=== PATIENT | female | born 1985 | race Caucasian/White ===

== ENCOUNTER 2020-03-26 01:49 | Emergency (ER) | payer SELFPAY ==
[2020-03-26 02:21] VITALS: BP 86/49
[2020-03-26] MEDS ORDERED: NORMAL SALINE 1000 ML 1,000 ML IV PRN (04:07)
--- NOTE | 2020-03-26 04:58 | RADIOLOGY REPORT (SQ) ---
Obstetric ultrasound: 03/26/2020 3:54 AM CDT HISTORY: 34-year-old female with concern for heart rate, syncope. TECHNIQUE: Multiple grayscale and color Doppler images of the pelvis were obtained transabdominally. COMPARISON: None available for this . FINDINGS: A single intrauterine gestation is seen, which is cephalic in position. The placenta is posterior in location, and free of internal os of the cervix. The cervix measures at least 3.1 cm in length. The estimated heart rate is approximately 145 bpm. The estimated weight is approximately 345 g +/- 15%. The fetus overall measures at the 95% by AUA. The SWATI measures 11.5 cm, with the deepest vertical pocket of approximately 4.2 cm. The fetus measures at 20 weeks and 4 day(s) by AUA, consistent with an estimated due date of 08/09/2020. The following measurements were obtained: BPD: 4.9 cm, consistent with 20 weeks and 6 day(s). HC: 18.3 cm, consistent with 20 weeks and 5 day(s). AC: 14.4 cm, consistent with 19 weeks and 5 day(s). FL: 3.4 cm, consistent with 20 weeks and 6 day(s). IMPRESSION: A single, live intrauterine gestation is seen which is currently cephalic in position. The fetus measures at 20 weeks and 4 day(s) by AUA, consistent with an estimated due date of 08/09/2020. 2.Detailed anatomic assessment was not performed. Interval follow-up with an obstetric care provider is recommended.
[2020-03-26 05:29] LABS: ABSOLUTE LYMPHOCYTES (AUTO) 1.8 10^3/uL (0.5-4.7); ABSOLUTE MONOCYTES (AUTO) 0.4 10^3/uL (0.1-1.4); ABSOLUTE NEUT (AUTO) 9.6 10^3/uL (1.7-8.2); BASOPHILS % (AUTO) 0.2 % (0-2); EOSINOPHILS % (AUTO) 0.3 % (0-6); HEMATOCRIT 32.9 % (36.0-47.0); HEMOGLOBIN 11.4 g/dL (12.0-15.5); LYMPHOCYTES % (AUTO) 14.9 % (13-45); MEAN CORPUSCULAR HEMOGLOBIN 31.4 pg (27.0-33.4); MEAN CORPUSCULAR HGB CONC 34.6 g/dL (32.0-36.0); MEAN CORPUSCULAR VOLUME 91 fl (80-97); MONOCYTES % (AUTO) 3.4 % (3-13); PLATELET COUNT 210 10^3/uL (150-450); RED BLOOD COUNT 3.63 10^6/uL (3.72-5.28); RED CELL DISTRIBUTION WIDTH 12.8 % (11.5-14.0); SEGMENTED NEUTROPHILS % (AUTO) 81.2 % (42-78); TOTAL CELLS COUNTED % (AUTO) 100 %; WHITE BLOOD COUNT 11.9 10^3/uL (4.0-10.5)
[2020-03-26 05:46] LABS: ALBUMIN 3.1 g/dL (3.5-5.0); ALKALINE PHOSPHATASE 44 U/L (38-126); ANION GAP 6 (5-19); ASPARTATE AMINO TRANSFERASE 17 U/L (14-36); BILIRUBIN,TOTAL 0.1 mg/dL (0.2-1.3); BLOOD UREA NITROGEN 8 mg/dL (7-20); CALCIUM 8.1 mg/dL (8.4-10.2); CARBON DIOXIDE 22 mmol/L (22-30); CHLORIDE 106 mmol/L (98-107); GLUCOSE 98 mg/dL (75-110); POTASSIUM 3.8 mmol/L (3.6-5.0); TOTAL PROTEIN 5.9 g/dL (6.3-8.2)
--- NOTE | 2020-03-26 06:45 | ER Document Report ---
ED General - General Chief Complaint: Syncope Stated Complaint: SYNCOPE Information source: Patient - HPI Notes: 34-year-old female approximately 5.5 months LMP 10/29 presents with episode of syncope just prior to arrival. Patient says she felt hot shower and then afterwards felt generally weak and lightheaded and went to lay down and then lost consciousness unable to be aroused by for approximately 2 minutes. Patient then returned to baseline, still feels lightheaded when she goes from sitting to standing which is been happening frequently for the past several weeks. Patient says she drinks approximately "100 mL "of water per day. Has not increased her water intake during . Has been getting regular OB care without any complications. Patient has been feeling movement since episode. Patient denies any chest pain, shortness of breath, palpitations, lower extremity edema, abdominal pain, nausea vomiting, diarrhea/constipation/melena/bright red blood per rectum, fevers chills, myalgia, sick contacts, vaginal bleeding/discharge, urinary symptoms, family history - Related Data Allergies/Adverse Reactions: No Known Allergies Allergy (Unverified 03/26/20 02:21) Home Medications: Past Medical History - General Information source: Patient - Social History Smoking Status: Never Smoker Frequency of alcohol use: None Drug Abuse: None Patient has homicidal ideation: No Review of Systems - Review of Systems Notes: REVIEW OF SYSTEMS: CONSTITUTIONAL : Denies fever, chills, or sweats. EENT: Denies recent cold/sinus symptoms, denies throat pain CARDIOVASCULAR: Denies chest pain, LEIGHANN RESPIRATORY: Denies cough, denies shortness of breath. GASTROINTESTINAL: Denies abdominal pain, nausea/vomiting. GENITOURINARY: Denies difficulty urinating, painful urination. FEMALE GENITOURINARY: Denies vaginal bleeding, vaginal discharge. MUSCULOSKELETAL: Denies neck pain, back pain. SKIN: Denies rash or skin lesions. HEMATOLOGIC : Denies easy bruising or bleeding. LYMPHATIC: Denies swollen, enlarged glands. NEUROLOGICAL: Denies headache, denies change in gait. PSYCHIATRIC: Denies anxiety or stress or depression. Physical Exam - Vital signs Vitals: Temp 97.7 F 03/26/20 02:19 - Notes Notes: PHYSICAL EXAMINATION: GENERAL: Well-appearing, well-nourished and in no acute distress. HEAD: Atraumatic, normocephalic. EYES: Pupils equal round and appropriate constriction, sclera anicteric, conjunctiva are normal. ENT: nares patent, dry mucous membranes. NECK: Normal range of motion, supple without lymphadenopathy LUNGS: Breath sounds clear to auscultation bilaterally and equal. No wheezes rales or rhonchi. HEART: Regular rate and rhythm without murmurs ABDOMEN: Soft, nontender, no guarding, gravid uterus to umbilicus, no CVAT EXTREMITIES: Normal range of motion, no pitting or edema. No cyanosis. NEUROLOGICAL: Awake, alert, conversing appropriately, moves all extremities spontaneously. PSYCH: Normal mood, normal affect. SKIN: Warm, Dry, normal turgor, no rashes or lesions noted. Course - Re-evaluation Re-evalutation: 03/26/20 07:19 Syncope likely secondary to dehydration/fluid movements in the second trimester of precipitated by poor p.o. fluid intake chronically because of patient's habits. No trauma with syncope. No symptoms of PE. Normal exam. Patient says her blood pressure is usually in the low 90s and that has been the case her whole life so blood pressure is not significantly decreased from patient's norm. Spoke to patient extensively regarding importance of increasing p.o. hydration and and possible complications of dehydration in including miscarriage. Obtain CBC to rule out symptomatic anemia and BMP to rule out electrolyte abnormalities. EKG without any signs of ischemia or structural/electrical cardiac disease. After 2 L of IV fluids patient felt greatly improved, was able to walk around triage area without any lightheadedness. Gave patient extensive verbal return to ED precautions which she demonstrated understanding of. Discharged with PCP and OB follow-up. - Vital Signs Vital signs: Temp Pulse Resp BP Pulse Ox 97.7 F 73 14 86/49 L 100 03/26/20 02:20 03/26/20 02:20 03/26/20 02:20 03/26/20 02:20 03/26/20 02:20 - Laboratory Result Diagrams: 03/26/20 05:00 03/26/20 05:00 Laboratory results interpreted by me: 03/26/20 03/26/20 05:00 05:00 WBC 11.9 H RBC 3.63 L Hgb 11.4 L Hct 32.9 L Absolute Neuts (auto) 9.6 H Seg Neutrophils % 81.2 H Sodium 133.5 L Creatinine 0.46 L Calcium 8.1 L Total Bilirubin 0.1 L Total Protein 5.9 L Albumin 3.1 L Discharge - Discharge Clinical Impression: Dehydration during Syncope Qualifiers: Syncope type: unspecified Qualified Code(s): R55 - Syncope and collapse Condition: Good Disposition: HOME, SELF-CARE Additional Instructions: Dehydration Dehydration can result from vomiting or diarrhea, fever, or decreased intake of fluids. If severe, hospitalization and intravenous fluids may be required. Most cases are treated at home with fluids by mouth. For the next 24 hours, drink lots of clear fluids. In mild cases, this can be soda pop or sports drinks. Try to get three liters (3 quarts) of fluid per day. If vomiting occurs, continue to drink the fluids frequently (every 15 to 20 minutes), but in small amounts (one or two ounces). Depending on the type of dehydration, the doctor may prescribe antinausea medicine or potassium replacements. Call the doctor or return for re-examination if you become progressively weak, vomit repeatedly, or have other new symptoms. Syncopal Episode Syncope (fainting or near-fainting) can occur from many different health problems. Or it can be a simple fainting spell requiring no treatment. It is safe for you to go home, but further evaluation will likely be necessary. The warning signs of an impending faint include: dizziness, lightheadedness, nausea, hot flashes, tingling, and weakness. If this happens, lay down and put your feet up, then wait until all of these symptoms have passed before standing up again. If these episodes become recurrent, or if you develop chest pain, heart palpitations, mental confusion, blurred vision, or headache, then you should call the physician, or go to the emergency room. Follow-up with your creative technologist within 1 week. Return to ED immediately if you have chest pain, shortness of breath, additional fainting, vaginal bleeding, abdominal pain, or any other worsening or alarming symptoms
--- NOTE | 2020-03-26 07:22 | EKG REPORT ---
SEVERITY:- BORDERLINE ECG - SINUS RHYTHM : Confirmed by: Chong Palafox MD 26-Mar-2020 07:21:24
== END 2020-03-26 06:54 | disposition home or self-care (01) ==
LOC: ER 01:49
DX: O26.892 Other specified pregnancy related conditions, second trimester (principal); E86.0 Dehydration; R55 Syncope and collapse; R53.1 Weakness; Z3A.20 20 weeks gestation of pregnancy
CPT/HCPCS: 93005; 99284; 96360; 36415; 85025; 80053; 76815; 93010; J7030